=== PATIENT | female | born 1995 | race Caucasian/White ===

== ENCOUNTER 2020-01-16 03:00 | Emergency (ER) | payer MEDICAID ==
[2020-01-16] MEDS ORDERED: LIDOCAINE HCL/EPINEPHRINE 1%-EPI 1:100,000 20 ML VIAL ONE (04:00)
[2020-01-16] MEDS ORDERED: MORPHINE SULFATE 4 MG/ML CPJ (NOT FOR IM USE) IV ONE ×3 (04:00→10:45)
[2020-01-16 06:44] LABS: BASOPHILS % 0.3 % (0.0-2.0); EOSINOPHILS % 0.6 % (0.0-5.0); HEMATOCRIT. 38.3 % (36.0-48.0); HEMOGLOBIN. 12.5 g/dL (12.0-16.0); LYMPHOCYTES % 16.5 % (20.0-50.0); MEAN CORPUSCULAR HEMOGLOBIN 25.8 pg (28.0-32.0); MEAN CORPUSCULAR VOLUME 79.3 fL (81.0-99.0); MEAN PLATELET VOLUME 8.1 fl (7.4-10.4); MONOCYTES % 6.3 % (2.0-8.0); NEUTROPHILS % 76.3 % (40.0-76.0); PLATELET 449 x1000/uL (130-400); RED BLOOD CELL COUNT 4.83 mill/uL (4.2-5.4); RED CELL DISTRIBUTION WIDTH 15.4 % (11.6-14.6)
[2020-01-16 06:48] LABS: CHLORIDE 109 mEq/L (98-107)
[2020-01-16] MEDS ORDERED: CEFAZOLIN 1000MG PREMIX 50 ML IV ONE (07:45)
[2020-01-16 09:57] LABS: HCG SCREEN NEGATIVE
[2020-01-16 10:12] LABS: CHLORIDE 111 mEq/L (98-107); PROTHROMBIN TIME 10.2 sec (9.6-11.0)
[2020-01-16] MEDS ORDERED: KETOROLAC 15MG/ML VIAL IV ONE (13:00)
[2020-01-16 17:02] VITALS: BP 138/88
== END 2020-01-16 17:06 | disposition short-term general hospital (02) ==
LOC: ER 03:00 → CANBEDREQ 20:11
DX: S82.55XA Nondisplaced fracture of medial malleolus of left tibia, initial encounter for closed fracture (principal); S92.142A Displaced dome fracture of left talus, initial encounter for closed fracture; S82.202A Unspecified fracture of shaft of left tibia, initial encounter for closed fracture; X95.9XXA Assault by unspecified firearm discharge, initial encounter; Y93.9 Activity, unspecified; Y92.9 Unspecified place or not applicable
CPT/HCPCS: 36415; 73560; 73590; 73610; 80048; 80053; 81025; 84484; 84703; 85025; 85610; 93005; 96365; 96375; 96376; 99285; J0690; J1885; J2270; J3490